=== PATIENT | male | born 1965 | race Caucasian/White ===

== ENCOUNTER 2017-12-05 12:40 | Emergency (ER) | payer MEDICAID, SELFPAY ==
[2017-12-05 12:47] VITALS: BP 142/64; PULSE 82; RESP 16; TEMP 36.7; O2SAT 96
--- NOTE | 2017-12-05 12:59 | ED.GENADUL_ITS ---
Disposition Clinical Impression: Acute radial nerve palsy of right upper extremity Disposition: HOME Condition: Serious Instructions: Radial Nerve Palsy (ED) Additional Instructions: Please use wrist splint for the next 1-2 weeks. Please follow-up with your primary care physician. I am concerned that you are taking too much lorazepam and other sedatives at night. Please take medications only as prescribed and be sure to discuss your current medication dosing with your primary care physician. Should symptoms persist, follow-up with orthopedics. Return to the emergency department immediately for any worsening or new concerning symptoms. Forms: Work Release Medical Decision Making - Medical Decision Making 13:00 --patient seen immediately on arrival. A medical screening exam was performed. Patient is a 52-year-old male with multiple medical problems resenting with inability to extend his right hand at wrist and right digits as well as some paresthesias over his dorsal lateral hand upon waking this morning. Patient notes he slept on his arm wrong last night. I am concerned that he is potentially overdosing on sedative medications at night. I suspect he has a radial nerve palsy. He has no other findings that would be concerning for a central lesion. Plan is to place the patient in a wrist splint and have him follow-up with his primary care physician. --screening ECG was sent by protocol. ECG reviewed and interpreted by me: Normal sinus rhythm 83 bpm, normal axis, T-wave inversion noted aVL, nondiagnostic History of Present Illness - General Chief complaint: CVA/TIA Stated complaint: [place] Time Seen by Provider: 12/05/17 12:50 Source: patient, RN notes reviewed Mode of arrival: ambulatory Limitations: no limitations - History of Present Illness Initial comments: 52-year-old male with history of coronary artery disease, diabetes, hyperlipidemia, chronic pain, presents with chief complaint of weakness in his right arm. Patient specifically notes he has weakness in his ability to lift up his right hand at wrist. This started upon waking today around 10 AM. He went to his primary care physician who saw him briefly and sent him to the ER for further evaluation. Symptoms are severe. Constant. No modifiers. Patient has associated tingling in his right hand. Patient has no associated headache, other weakness, or visual changes. Patient does note that he takes all of his prescribed lorazepam (3mg dose) at bedtime. He does think that he may have slept on his arm wrong last night. I called and spoke with Sosa at the [facility] who evaluated the patient and sent him for evaluation. She notes that she was specifically concerned for stroke because the patient noted that he was concerned for stroke and that a complete exam was not done initially prior to calling EMS. After EMS arrival the room to see that the patient was able to ambulate without dysfunction and were more concerned about the potential for palsy. - Related Data Atorvastatin [Lipitor] 80 mg PO DAILY 12/05/17 FLUoxetine [PROzac] 40 mg PO DAILY 12/05/17 Insulin Glargine,Hum.rec.anlog [Lantus] 31 units PO HS 12/05/17 Levothyroxine Sodium 100 mcg PO DAILY 12/05/17 Lisinopril 5 mg PO DAILY 12/05/17 Lorazepam 3 mg PO DAILY 12/05/17 MetFORMIN [Glucophage] 1,000 mg PO BID 12/05/17 Methocarbamol 750 mg PO HS 12/05/17 Metoprolol [Lopressor] 50 mg PO DAILY 12/05/17 Naproxen [EC-Naprosyn] 500 mg PO DAILY 12/05/17 OxyCODONE CR [OxyCONTIN] 40 mg PO BID 12/05/17 Oxycodone HCl 30 mg PO BID 12/05/17 Pregabalin [Lyrica] 200 mg PO BID 12/05/17 TraZODone [Desyrel] 100 mg PO DAILY 12/05/17 Allergies Allergy/AdvReac Type Severity Reaction Status Date / Time adhesive tape Allergy Unverified 12/05/17 12:50 morphine Allergy Unverified 12/05/17 12:50 Review of Systems Constitutional: denies: chills, fever Eyes: denies: vision change Respiratory: denies: cough, shortness of breath Cardiovascular: denies: chest pain Gastrointestinal: denies: abdominal pain Neurological: as per HPI, weakness, numbness. denies: headache Comment: All other systems reviewed and negative Past Medical History - Past Medical History Medical history: arthritis, CAD, diabetes, hyperlipidemia, hypertension Surgical history: appendectomy Psychiatric history: panic attacks - Social History Smoking status: never smoker General Exam - General Limitations: no limitations General appearance: alert, in no apparent distress - Eye Eye exam: Present: PERRL, EOMI. Absent: scleral icterus, conjunctival injection - ENT ENT exam: Present: mucous membranes moist - Respiratory Respiratory exam: Present: normal lung sounds bilaterally - Cardiovascular Cardiovascular Exam: Present: regular rate, normal rhythm, normal heart sounds - GI/Abdominal GI/Abdominal exam: Present: soft. Absent: distended, tenderness - Extremities Exam Extremities exam: Absent: pedal edema - Neurological Exam Neurological exam: Present: alert, oriented X3, CN II-XII intact, normal gait, motor sensory deficit (Unable to extend right wrist and digits, decreased sensation dorsal lateral hand; otherwise full strength in other peripheral motor distributions rt arm; no other neuro deficits). Absent: altered - Psychiatric Psychiatric exam: Present: normal affect - Skin Skin exam: Present: warm, dry, intact Course Vital Signs - 24 hr 12/05/17 12:47 Temperature 36.7 C Pulse 82 Respiratory 16 Rate Blood Pressure 142/64 Pulse Oximetry 96
[2017-12-05 13:06] VITALS: RESP 18
[2017-12-05 13:43] VITALS: BP 142/64; PULSE 82; RESP 18; O2SAT 96
== END 2017-12-05 13:42 | disposition home or self-care (01) ==
PROVIDERS: Emergency Provider Student in an Organized Health Care Education/Training Program; PCP Physician Assistant Medical
DX: G56.31 Lesion of radial nerve, right upper limb (principal); E11.9 Type 2 diabetes mellitus without complications; Z79.4 Long term (current) use of insulin; I10 Essential (primary) hypertension
CPT/HCPCS: 29125; 93005; 99284; 93010; L3908

== ENCOUNTER 2022-03-31 15:25 | Inpatient (IN) | payer MEDICARE, MEDICAID, SELFPAY ==
[2022-03-31] VITALS (12 sets, daily range): BP systolic 123–130; BP diastolic 61–78; PULSE 80–101; RESP 17–25; TEMP 36.6–36.9; O2SAT 88–96
--- NOTE | 2022-03-31 16:01 | ED.GENADUL_ITS ---
Discharge Plan Disposition Patient Disposition: Admit to [facility] Condition: Stable Discharge Details Clinical Impression: COVID-19, Multifocal pneumonia, Generalized weakness, Vomiting and diarrhea Admit Date/Time: 03/31/22 18:49 Admit Provider: Houston Liao Attending Provider: Houston Liao Primary Care Provider: Christine Arora ED Provider: Emma Stubbs Discharge Data Discharge Date/Time-TO BE ENTERED AT DEPARTURE: 03/31/22 20:35 Medical Decision Making 1540 -- 56-year-old male with history of hypertension, hyperlipidemia, diabetes, coronary artery disease, hypothyroidism, obesity who presents from home for vomiting, diarrhea and shortness of breath today with generalized weakness since yesterday. Heart rate mildly elevated at 101. Remainder vitals within normal limits. Patient appears generally fatigued but nontoxic. Dry mucous membranes. Lungs clear throughout. Abdomen soft and nontender. No lower extremity edema. Differential diagnosis includes COVID, influenza, RSV, pneumonia, PE, dehydration. We will place an IV, bolus IV fluids, screening labs, Fluvid, cxr and give a dose of IV Toradol, DuoNeb, and reassess. 1830 --labs and imaging reviewed. Patient is COVID-positive. Normal white blood cell count. Negative influenza and RSV. Chest x-ray was negative. His D-dimer was elevated to 1866 so he was referred for a CT chest which was negative for PE but did note bilateral infiltrates and groundglass opacities likely consistent with COVID. Patient reassessed and he still feels weak. Attempted to ambulate and he stated he was too weak and his heart rate increased to 130s. His oxygen saturation is 91 to 93% on room air. We will start supplemental oxygen as needed to keep oxygen saturation above 90%. We will give additional IV fluids and nebulizer treatment. Will admit for remdesivir, supplemental oxygen as needed, IV fluid hydration and PT evaluation. Case discussed with hospitalist who accepts patient for admission. Medical Records Medical records reviewed: Yes I reviewed the patient's medical records. Imaging Data Radiologic Study: Radiologist's impression: XR PORTABLE CHEST AP CLINICAL HISTORY:? sob, r/o acute disease TECHNIQUE:? 2D digital imaging was performed. COMPARISON:? No exams were available for comparison FINDINGS: Leads overlie the chest.? There is a monitoring device projecting over the left heart border. LUNGS: Not well inflated but clear.? No pleural abnormality seen. HEART: Normal size. AORTA: Normal diameter. BONES: Sternal wires and mediastinal clips likely related to CABG. Soft tissues: Unremarkable. IMPRESSION: No acute? findings. CTA Chest With Contrast Exam date and time: 03/31/2022 5:13 PM Age: 56 years old Clinical indication: Other: SOB, covid +, R/O pe TECHNIQUE: Imaging protocol: Computed tomographic angiography of the chest with contrast. 3D rendering (Not supervised by radiologist): MIP and/or 3D reconstructed images were created by the technologist. Contrast material: 350; Contrast volume: 100 ml; Contrast route: INTRAVENOUS (IV);? COMPARISON: CR XR PORTABLE CHEST AP 03/31/2022 4:23 PM FINDINGS: Pulmonary arteries: Normal. No pulmonary emboli. Aorta: Unremarkable. No aortic aneurysm. No aortic dissection. Lungs: Hazy airspace opacity in both lower lobes, left worse than right. Suspect consolidation. More ground-glass changes are noted in the upper lobes. New lines left chest wall subcutaneous cardiac device noted. Right lower lobe calcified granuloma. Pleural spaces: Unremarkable. No pneumothorax. No pleural effusion. Heart: Small pericardial effusion. Coronary arteries: Coronary artery calcifications/stents identified. Lymph nodes: Mild right hilar and minimal left hilar adenopathy. Mild mediastinal adenopathy. Liver: Mild fatty liver. Bones/joints: Status post median sternotomy. Posttraumatic changes noted in the upper chest anterior ribs, likely postoperative in nature. Soft tissues: See Bones/joints finding. Other findings: Respiratory motion noted. IMPRESSION: 1. No evidence for pulmonary embolus. 2. Scattered infiltrates, most dense in the left lower lobe. More ground-glass appearance noted in the upper lobes. Lab Data Lab results reviewed: Yes I reviewed the patient's lab results. Labs: Laboratory Tests Range/Units 03/31/22 03/31/22 03/31/22 15:35 16:02 16:02 WBC (4.4-10.8) 10^3/uL 6.35 RBC (4.36-5.78) 10^6/uL 4.21 L Hgb (13.5-17.5) g/dL 13.0 L Hct (40.0-50.0) % 38.6 L MCV (80-95) fL 92 MCH (27.0-33.0) pg 30.9 MCHC (32.0-36.0) % 33.7 RDW (11.8-14.1) % 14.1 Plt Count (130-400) 10^3/uL 199 MPV (8.0-11.0) fL 8.9 Immature Gran % 1.1 Neutrophils % 83.7 Lymphocytes % 7.9 Monocytes % 6.8 Eosinophils % 0.0 Basophils % 0.5 Nucleated RBC % (0.0-0.3) % 0.0 Absolute Neutrophils (1.2-6.7) 10^3/uL 5.32 Absolute Lymphocytes (1.2-3.4) 10^3/uL 0.50 L Absolute Monocytes (0.1-0.8) 10^3/uL 0.43 Absolute Eosinophils (0.0-0.7) 10^3/uL 0.00 Absolute Basophils (0.0-0.2) 10^3/uL 0.03 D-Dimer (<500) ng/mlFEU Sodium (136-145) mmol/L 136 Potassium (3.5-5.1) mmol/L 4.1 Chloride (98-107) mmol/L 98 Carbon Dioxide (21.0-32.0) mmol/L 24.2 Anion Gap (3-11) mmol/L 13.8 H BUN (7-18) mg/dL 10 Creatinine (0.70-1.30) mg/dL 0.9 Est GFR (CKD-EPI 2020) (mL/min/1.73m2) 101.49 Glucose (74-106) mg/dL 199 H Calcium (8.5-10.1) mg/dL 8.9 Total Bilirubin (0.2-1.0) mg/dL 1.0 AST (15-37) U/L 142 H ALT (16-63) U/L 100 H Alkaline Phosphatase (46-116) U/L 87 Total Protein (6.4-8.2) g/dL 7.8 Albumin (3.4-5.0) g/dL 3.5 Lipase (73-393) U/L 113 TSH (0.36-3.74) uIU/mL 0.36 COVID-19 Source Not Applicable SARS-CoV-2 (PCR) (Negative) Positive A Influenza Type A (PCR) (Negative) Negative Influenza Type B (PCR) (Negative) Negative RSV (PCR) (Negative) Negative Range/Units 03/31/22 03/31/22 03/31/22 16:02 16:02 16:02 WBC (4.4-10.8) 10^3/uL RBC (4.36-5.78) 10^6/uL Hgb (13.5-17.5) g/dL Hct (40.0-50.0) % MCV (80-95) fL MCH (27.0-33.0) pg MCHC (32.0-36.0) % RDW (11.8-14.1) % Plt Count (130-400) 10^3/uL MPV (8.0-11.0) fL Immature Gran % Neutrophils % Lymphocytes % Monocytes % Eosinophils % Basophils % Nucleated RBC % (0.0-0.3) % Absolute Neutrophils (1.2-6.7) 10^3/uL Absolute Lymphocytes (1.2-3.4) 10^3/uL Absolute Monocytes (0.1-0.8) 10^3/uL Absolute Eosinophils (0.0-0.7) 10^3/uL Absolute Basophils (0.0-0.2) 10^3/uL D-Dimer (<500) ng/mlFEU 1866 H Sodium (136-145) mmol/L Potassium (3.5-5.1) mmol/L Chloride (98-107) mmol/L Carbon Dioxide (21.0-32.0) mmol/L Anion Gap (3-11) mmol/L BUN (7-18) mg/dL Creatinine (0.70-1.30) mg/dL Est GFR (CKD-EPI 2020) (mL/min/1.73m2) Glucose (74-106) mg/dL Calcium (8.5-10.1) mg/dL Total Bilirubin (0.2-1.0) mg/dL AST (15-37) U/L ALT (16-63) U/L Alkaline Phosphatase (46-116) U/L Total Protein (6.4-8.2) g/dL Albumin (3.4-5.0) g/dL Lipase (73-393) U/L Cancelled TSH (0.36-3.74) uIU/mL Cancelled COVID-19 Source SARS-CoV-2 (PCR) (Negative) Influenza Type A (PCR) (Negative) Influenza Type B (PCR) (Negative) RSV (PCR) (Negative) HPI General Mode of arrival: EMS . Date/Time Provider Initiated Documentation: 03/31/22 15:50 . Limitations to Documentation: no limitations . Information obtained by: patient . HPI Narrative: Patient is a 56-year-old male with a history of hypertension, hyperlipidemia, coronary artery disease, CABG x2, diabetes, hypothyroidism who presents from home for vomiting, diarrhea, shortness of breath and generalized weakness today. Patient states he developed some weakness yesterday but then started with vomiting and diarrhea and shortness of breath today. He states his diarrhea has mainly been loose and brown. He denies any known fever, chest pain or abdominal pain. Patient is unvaccinated for COVID. Related Data Home Medications Medication Instructions Recorded Confirmed atorvastatin 80 mg tablet (Lipitor) 80 mg PO DAILY 12/05/17 03/31/22 insulin glargine 100 unit/mL 31 units PO HS 12/05/17 03/31/22 subcutaneous solution (Lantus U-100 Insulin) levothyroxine 100 mcg tablet 100 mcg PO DAILY 12/05/17 03/31/22 lorazepam 1 mg tablet 3 mg PO DAILY 12/05/17 03/31/22 metformin 1,000 mg tablet 1,000 mg PO BID 12/05/17 03/31/22 (Glucophage) methocarbamol 750 mg tablet 750 mg PO HS 12/05/17 03/31/22 naproxen 500 mg tablet,delayed 500 mg PO DAILY 12/05/17 12/05/17 release (EC-Naprosyn) oxycodone 30 mg tablet 30 mg PO BID 12/05/17 03/31/22 pregabalin 200 mg capsule (Lyrica) 200 mg PO BID 12/05/17 03/31/22 trazodone 100 mg tablet 100 mg PO DAILY 12/05/17 03/31/22 semaglutide 0.25 mg or 0.5 mg (2 0.25 mg subcut QWEEK 08/07/19 mg/1.5 mL) subcutaneous pen injector (Ozempic) fluoxetine 40 mg capsule 20 mg PO DAILY 08/22/19 09/24/19 metoprolol tartrate 25 mg tablet 50 mg PO BID 08/22/19 03/31/22 Allergies Allergy/AdvReac Type Severity Reaction Status Date / Time adhesive tape Allergy Unverified 03/31/22 15:37 morphine Allergy Unverified 03/31/22 15:37 venlafaxine AdvReac Mild nightmares/ Verified 03/31/22 15:37 hallucinati ons General Stated Complaint: Nausea/Vomit/Diar LATISHA: 3 Review of Systems All systems reviewed & are unremarkable except as noted in HPI and below Constitutional Constitutional: Reports as per HPI, Denies chills and Denies fever(s) Eyes Eyes: Denies blurry vision ENT Ears, Nose, Mouth, and Throat: Denies dizziness, Denies sore throat and Denies throat swelling Cardiovascular Cardiovascular: Denies chest pain and Reports dyspnea Respiratory Respiratory: Denies cough and Reports dyspnea Gastrointestinal Gastrointestinal: Denies abdominal pain, Reports diarrhea, Reports nausea and Reports vomiting Genitourinary Genitourinary: Denies hematuria and Denies dysuria Musculoskeletal Musculoskeletal: Denies back pain and Denies numbness Integumentary/Breasts Skin/Breast: Denies lesions and Denies rash Neurologic Neurologic: Denies dizziness, Denies localized weakness and Denies numbness Allergic/Immunologic Allergic/Immunologic: Denies throat swelling PFSH All Active Problems (Updated 04/02/22 @ 17:25 by Angela Kim MD) Discharge planning issues (Acute) Diabetes mellitus type 2 in obese (Acute) Pneumonia due to COVID-19 virus (Acute) COVID-19 (Acute) Multifocal pneumonia (Acute) Generalized weakness (Acute) Right carpal tunnel syndrome (Acute) Cubital tunnel syndrome on right (Acute) Stroke (Chronic) Ulnar neuropathy of right upper extremity (Acute) Diabetic neuropathy (Acute) Medical History Acute ST segment elevation myocardial infarction Coronary arteriosclerosis Cubital tunnel syndrome on left Diabetes Dyspnea Full thickness rotator cuff tear Headache Hx of herpes zoster Hyperlipidemia Hypertension Hypothyroidism Idiopathic osteoporosis Inflammatory dermatosis Injury of right lower leg Insomnia Knee pain halfway (current) use of opiate analgesic Obesity Pain, joint, shoulder, left Panic disorder Second degree atrioventricular block Severe recurrent major depression with psychotic features Suicidal thoughts Vitamin D deficiency Surgical History H/O arthroplasty History of appendectomy History of carpal tunnel surgery L 2008 History of loop recorder Apr 2019 Hx of cardiac cath S/P CABG x 2 S/P rotator cuff repair L 2008 Family History Mother Torticollis Father Diabetes Multiple sclerosis Cardiomyopathy Social History Smoking/Tobacco Use Status: Never Smoking risk assessment performed?: Yes Alcohol Intake: former Details: QUIT 2003 Drug use: Never Substance use type: does not use Housing: house current occupation: Disabled What is your relationship status?: never Panel score (0-1 are the most socially isolated patients): 0 Seatbelt use: always Do you feel safe in your relationship?: Yes Exam Const General: cooperative, no acute distress and disheveled Orientation: alert, awake and oriented x3 HENMT Head: normal to inspection Ears: hearing grossly normal bilaterally and external ears normal Face and sinus: normal facial exam Eyes General: appearance normal, both eyes and all related structures Pupils: PERRL EOM: EOM intact bilaterally Neck Neck: normal visual inspection and No submandibular swelling Lymphatic: no lymphadenopathy noted Chest Chest: normal inspection of the chest and no tenderness Resp Effort & Inspection: normal respiratory effort and able to speak in complete sentences Auscultation: clear to auscultation bilaterally Cardio Rate: tachycardic Rhythm: regular rhythm GI Inspection: normal to inspection Palpation: soft, not firm, not rigid and nontender Auscultation: normal bowel sounds Skin General skin exam: no rashes or lesions noted Neuro General: patient alert, patient awake and patient oriented x3 Cognition: normal cognition Speech: speech normal Motor: muscle tone normal throughout Sensory Exam: no sensory deficits noted Extrem General: normal to inspection, full ROM, capillary refill normal, no calf tenderness bilaterally and no edema Psych Appearance: grossly normal Mental Status: mental status grossly normal Speech and Movement: speech and movement normal Affect: normal affect Course Vital Signs Vital signs: Vital Signs Temperature 97.9 F 03/31/22 15:24 Pulse 101 H 03/31/22 15:24 Respiratory Rate 17 03/31/22 15:24 Blood Pressure 123/61 03/31/22 15:24 Pulse Oximetry 94 03/31/22 15:24 Temperature 97.9 F 03/31/22 15:24 Temperature Source Temporal Artery Scan 03/31/22 15:24 Pulse 101 H 03/31/22 15:24 Respiratory Rate 17 03/31/22 15:24 Respiratory Effort Short of Breath 03/31/22 15:35 Blood Pressure 123/61 03/31/22 15:24 Blood Pressure Position Sitting 03/31/22 15:24 Pulse Oximetry 94 03/31/22 15:24 Oxygen Delivery Method Room Air 03/31/22 15:24 Oxygen Flow Rate 0 03/31/22 15:24 Pain Level 10 03/31/22 15:24
[2022-03-31 16:08] LABS: Abs Immature Grans 0.07 10^3/uL (0.0-0.06); Absolute Basophil Count 0.03 10^3/uL (0.0-0.2); Absolute Monocyte Count 0.43 10^3/uL (0.1-0.8); Absolute Neutrophil Count 5.32 10^3/uL (1.2-6.7); Basophils % 0.5; HCT 38.6 % (40.0-50.0); Immature Grans % 1.1; Lymphocytes % 7.9; MCH 30.9 pg (27.0-33.0); MCHC 33.7 % (32.0-36.0); MCV 92 fL (80-95); MPV 8.9 fL (8.0-11.0); Monocytes % 6.8; Neutrophils % 83.7; Platelet Count 199 10^3/uL (130-400); RBC 4.21 10^6/uL (4.36-5.78); RDW 14.1 % (11.8-14.1); RDW-SD 47.6 fL; WBC 6.35 10^3/uL (4.4-10.8)
[2022-03-31] MEDS: Normal Saline 1,000 ML 1000 ML IV (16:15)
[2022-03-31] MEDS: Ketorolac 30 MG/ML VIAL IVP (16:15)
[2022-03-31] MEDS: Ondansetron 4 MG/2 ML VIAL IVP (16:15)
[2022-03-31 16:21] LABS: Influenza A PCR Negative (Negative); Influenza B PCR Negative (Negative); RSV PCR Negative (Negative)
[2022-03-31 16:29] LABS: COVID-19 PCR Positive (Negative)
--- NOTE | 2022-03-31 16:30 | DI.CT_ITS ---
Exam(s) CT CHEST PE CTA EXAM: CT CHEST PE CTA CLINICAL HISTORY: sob, covid +, r/o PE. TECHNIQUE: Imaging Protocol: Axial CT angiography was performed with multi-slice acquisition and mu lti-planar and/or 3D reconstructions. CONTRAST MATERIAL: Intravenous: Omnipaque 350 contrast volume:100 mL COMPARISON: CT RENAL COLIC WO CONTRAST from 02/21/2009 FINDINGS: Tracheobronchial tree: Patent where visualized. Pulmonary parenchyma: There are multifocal bilateral ground-glass opacities present. There is a calc ified granuloma in the right lower lobe. No architectural distortion. Pulmonary Arteries: No evidence of filling defect to suggest pulmonary emboli. Mediastinum and Krista: Mildly enlarged lymph nodes are seen in the mediastinum which are likely reacti ve. The esophagus is unremarkable. Visualized thyroid gland: Unremarkable. Pleura: No effusion or pneumothorax. Heart: The heart is not dilated. Coronary artery calcification and/or stents are seen. No significan t pericardial effusion. Aorta: Thoracic aorta non-dilated. No evidence of dissection. Upper abdomen: Unremarkable. Soft tissues: Unremarkable. Bones: Within normal limits for the patient's age. IMPRESSION: 1. No evidence of pulmonary embolism, thoracic aortic dissection or aneurysm. 2. Scattered ground-glass opacities in the lungs consistent with pneumonia. RADIATION DOSE DELIVERED: 594.99mGy.cm Total DLP DATA REPOSITORY: All CT scans at this facility are submitted to the National Radiology Data Registry (NRDR) Dose Index Registry (DIR) with the [employer] (A[employer]). RADIATION OPTIMIZATION: All CT scans at this facility use at least one of these dose optimization te chniques: automated exposure control; mA and/or kV adjustment per patient size (includes targeted exa ms where dose is matched to clinical indication); or iterative reconstruction.
--- NOTE | 2022-03-31 16:30 | DI.RAD_ITS ---
Exam(s) XR PORTABLE CHEST AP EXAM: XR PORTABLE CHEST AP CLINICAL HISTORY: sob, r/o acute disease TECHNIQUE: 2D digital imaging was performed. COMPARISON: No exams were available for comparison FINDINGS: Leads overlie the chest. There is a monitoring device projecting over the left heart border. LUNGS: Not well inflated but clear. No pleural abnormality seen. HEART: Normal size. AORTA: Normal diameter. BONES: Sternal wires and mediastinal clips likely related to CABG. Soft tissues: Unremarkable. IMPRESSION: No acute findings. DATA REPOSITORY: RADIATION DOSE DELIVERED:
[2022-03-31 16:34] LABS: ALT 100 U/L (16-63); AST 142 U/L (15-37); Albumin 3.5 g/dL (3.4-5.0); Alkaline Phosphatase 87 U/L (46-116); Anion Gap 13.8 mmol/L (3-11); BUN 10 mg/dL (7-18); CO2 24.2 mmol/L (21.0-32.0); CREATININE 0.9 mg/dL (0.70-1.30); Calcium 8.9 mg/dL (8.5-10.1); Chloride 98 mmol/L (98-107); Estimated GFR 101.49 (mL/min/1.73m2); Glucose 199 mg/dL (74-106); Lipase 113 U/L (73-393); Potassium 4.1 mmol/L (3.5-5.1); Sodium 136 mmol/L (136-145); TSH (W/Ref FT4) 0.36 uIU/mL (0.36-3.74); Total Protein 7.8 g/dL (6.4-8.2)
[2022-03-31 16:39] LABS: D-Dimer 1866 ng/mlFEU (<500)
[2022-03-31] MEDS: Omnipaque 350 MG/ML 100 ML BTL IJ (17:23)
[2022-03-31] MEDS: Normal Saline - Diluent 50 ML VIAL IV (17:25)
--- NOTE | 2022-03-31 18:08 | DI.VRAD_ITS ---
PROCEDURE INFORMATION: Exam: CTA Chest With Contrast Exam date and time: 03/31/2022 5:13 PM Age: 56 years old Clinical indication: Other: SOB, covid +, R/O pe TECHNIQUE: Imaging protocol: Computed tomographic angiography of the chest with contrast. 3D rendering (Not supervised by radiologist): MIP and/or 3D reconstructed images were created by the technologist. Contrast material: 350; Contrast volume: 100 ml; Contrast route: INTRAVENOUS (IV); COMPARISON: CR XR PORTABLE CHEST AP 03/31/2022 4:23 PM FINDINGS: Pulmonary arteries: Normal. No pulmonary emboli. Aorta: Unremarkable. No aortic aneurysm. No aortic dissection. Lungs: Hazy airspace opacity in both lower lobes, left worse than right. Suspect consolidation. More ground-glass changes are noted in the upper lobes. New lines left chest wall subcutaneous cardiac device noted. Right lower lobe calcified granuloma. Pleural spaces: Unremarkable. No pneumothorax. No pleural effusion. Heart: Small pericardial effusion. Coronary arteries: Coronary artery calcifications/stents identified. Lymph nodes: Mild right hilar and minimal left hilar adenopathy. Mild mediastinal adenopathy. Liver: Mild fatty liver. Bones/joints: Status post median sternotomy. Posttraumatic changes noted in the upper chest anterior ribs, likely postoperative in nature. Soft tissues: See Bones/joints finding. Other findings: Respiratory motion noted. IMPRESSION: 1. No evidence for pulmonary embolus. 2. Scattered infiltrates, most dense in the left lower lobe. More ground-glass appearance noted in the upper lobes. Dictated and Authenticated by: An Yee MD. Ordering:LUCÍA Carter MD
--- NOTE | 2022-03-31 18:32 | NUR.NOTE ---
Nursing Note: Per patient we can give Sondra his neighbor information regarding this visit.
[2022-03-31] MEDS: Albuterol 2.5 MG/3 ML INH SOLN VIAL 5 MG UPD (19:06)
--- NOTE | 2022-03-31 19:16 | W.PM.HP.N ---
Date of service: 03/31/22 Time of Service: 19:16 Assessment and Plan Assessment and plan (1) Pneumonia due to COVID-19 virus: Status: Acute Assessment and plan: Not currently hypoxic but at risk for worsening d/t comorbidities. Remdesivir and dexamethasone initiated. Therapeutic lovenox dosing. Vit C and D supplementation. Monitor inflammatory markers d-dimer and CRP. (2) Generalized weakness: Status: Acute Assessment and plan: D/T Covid-19. PT consulted. (3) Vomiting and diarrhea: Status: Acute Assessment and plan: Likely d/t Covid-19. Lomotil prn. Adequate hydration. (4) Acute ST segment elevation myocardial infarction: Assessment and plan: Not on an aspirin. Cont BB and statin. No c/o CP. (5) Coronary arteriosclerosis: Assessment and plan: As above. (6) Hyperlipidemia: Assessment and plan: Cont atorvastatin (7) Hypertension: Assessment and plan: Cont metoprolol. Monitor. (8) Obesity: Assessment and plan: Places him at higher risk for Covid complications. (9) skilled nursing (current) use of opiate analgesic: Assessment and plan: Prescribed for chronic back pain. He endorses that he was scheduled for back surgery this summer but did not proceed. Cont Methcarbamol and oxycodone. (10) Diabetes mellitus type 2 in obese: Status: Acute Assessment and plan: Cont home glargine. Hold metformin; received IV contrast with CTA chest. SS insulin correction dosing. On semiglutide SC weekly. Monitor glucose. Diabetic diet. (11) Severe recurrent major depression with psychotic features: Assessment and plan: Fluoxetine and nightly lorazepam (also for insomnia). At risk for exacerbation d/t Covid 19, isolation in Covid room. History of Present Illness History of Present Illness Chief Complaint: Shortness of air, vomiting, diarrhea Narrative: This is a 56 yo male with a PMH of DM insulin req., CAD with CABG x 2, HTN, HLD, hypothyroidism, obesity. He endorsed with c/o shortness or air, generalized weakness, emesis, diarrhea, onset on day of presentation. No melena/hematochezia. No fever/chills. No abd pain. He is unvaccinated for COVID-19. ED evaluation: Vital Signs Temperature ?97.9 F ?03/31/22 15:24 Pulse ?101 H ?03/31/22 15:24 Respiratory Rate ?17 ?03/31/22 15:24 Blood Pressure ?123/61 ?03/31/22 15:24 Pulse Oximetry ?94 ?03/31/22 15:24 WBC count 6.35. Hgb 13. Lytes normal. BUN 10. Creatinine 0.9. AST 142. ALT 100. SARSA-CoV 2 +. CXR: No acute findings. CTA chest: No pulmonary embolism. Scattered infiltrates, most dense in left lower lobe. More ground-glass appearance noted in the upper lobes. Admitted for Covid-19 treatment. Review of Systems All systems reviewed & are unremarkable except as noted in HPI and below PFSH All Active Problems (Updated 03/31/22 @ 21:00 by Houston Liao MD) Diabetes mellitus type 2 in obese (Acute) Pneumonia due to COVID-19 virus (Acute) COVID-19 (Acute) Multifocal pneumonia (Acute) Generalized weakness (Acute) Vomiting and diarrhea (Acute) Right carpal tunnel syndrome (Acute) Cubital tunnel syndrome on right (Acute) Stroke (Chronic) Ulnar neuropathy of right upper extremity (Acute) Diabetic neuropathy (Acute) Medical History Acute ST segment elevation myocardial infarction Coronary arteriosclerosis Cubital tunnel syndrome on left Diabetes Dyspnea Full thickness rotator cuff tear Headache Hx of herpes zoster Hyperlipidemia Hypertension Hypothyroidism Idiopathic osteoporosis Inflammatory dermatosis Injury of right lower leg Insomnia 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 Obesity Pain, joint, shoulder, left Panic disorder Second degree atrioventricular block Severe recurrent major depression with psychotic features Suicidal thoughts Vitamin D deficiency Surgical History H/O arthroplasty History of appendectomy History of carpal tunnel surgery L 2008 History of loop recorder Apr 2019 Hx of cardiac cath S/P CABG x 2 S/P rotator cuff repair L 2008 Family History Mother Torticollis Father Diabetes Multiple sclerosis Cardiomyopathy Social History Smoking/Tobacco Use Status: Never Smoking risk assessment performed?: Yes Alcohol Intake: former Details: QUIT 2003 Drug use: Never Substance use type: does not use Housing: house current occupation: Disabled What is your relationship status?: never Panel score (0-1 are the most socially isolated patients): 0 Seatbelt use: always Do you feel safe in your relationship?: Yes Meds Allergies and Home Medications Allergies Allergy/AdvReac Type Severity Reaction Status Date / Time adhesive tape Allergy Unverified 03/31/22 15:37 morphine Allergy Unverified 03/31/22 15:37 venlafaxine AdvReac Mild nightmares/ Verified 03/31/22 15:37 hallucinati ons Home Medications Medication Instructions Recorded Confirmed Type atorvastatin 80 mg tablet (Lipitor) 80 mg PO DAILY 12/05/17 03/31/22 History insulin glargine 100 unit/mL 31 units PO HS 12/05/17 03/31/22 History subcutaneous solution (Lantus U-100 Insulin) levothyroxine 100 mcg tablet 100 mcg PO DAILY 12/05/17 03/31/22 History lorazepam 1 mg tablet 3 mg PO DAILY 12/05/17 03/31/22 History metformin 1,000 mg tablet 1,000 mg PO BID 12/05/17 03/31/22 History (Glucophage) methocarbamol 750 mg tablet 750 mg PO HS 12/05/17 03/31/22 History naproxen 500 mg tablet,delayed 500 mg PO DAILY 12/05/17 12/05/17 History release (EC-Naprosyn) oxycodone 30 mg tablet 30 mg PO BID 12/05/17 03/31/22 History pregabalin 200 mg capsule (Lyrica) 200 mg PO BID 12/05/17 03/31/22 History trazodone 100 mg tablet 100 mg PO DAILY 12/05/17 03/31/22 History semaglutide 0.25 mg or 0.5 mg (2 0.25 mg subcut QWEEK 08/07/19 History mg/1.5 mL) subcutaneous pen injector (Ozempic) fluoxetine 40 mg capsule 20 mg PO DAILY 08/22/19 09/24/19 History metoprolol tartrate 25 mg tablet 50 mg PO BID 08/22/19 03/31/22 History Results Labs Result diagrams: 03/31/22 16:02 03/31/22 16:02 Labs: Laboratory Results - last 24 hr 03/31/22 03/31/2203/31/22 15:35 16:02 16:02 WBC 6.35 RBC 4.21 L Hgb 13.0 L Hct 38.6 L MCV 92 MCH 30.9 MCHC 33.7 RDW 14.1 Plt Count 199 MPV 8.9 Immature Gran % 1.1 Neutrophils % 83.7 Lymphocytes % 7.9 Monocytes % 6.8 Eosinophils % 0.0 Basophils % 0.5 Nucleated RBC % 0.0 Absolute Neutrophils 5.32 Absolute Lymphocytes 0.50 L Absolute Monocytes 0.43 Absolute Eosinophils 0.00 Absolute Basophils 0.03 D-Dimer Sodium 136 Potassium 4.1 Chloride 98 Carbon Dioxide 24.2 Anion Gap 13.8 H BUN 10 Creatinine 0.9 Est GFR (CKD-EPI 2020) 101.49 Glucose 199 H Calcium 8.9 Total Bilirubin 1.0 AST 142 H ALT 100 H Alkaline Phosphatase 87 Total Protein 7.8 Albumin 3.5 Lipase 113 TSH 0.36 COVID-19 Source Not Applicable SARS-CoV-2 (PCR) Positive A Influenza Type A (PCR) Negative Influenza Type B (PCR) Negative RSV (PCR) Negative 03/31/22 03/31/22 03/31/22 16:02 16:02 16:02 WBC RBC Hgb Hct MCV MCH MCHC RDW Plt Count MPV Immature Gran % Neutrophils % Lymphocytes % Monocytes % Eosinophils % Basophils % Nucleated RBC % Absolute Neutrophils Absolute Lymphocytes Absolute Monocytes Absolute Eosinophils Absolute Basophils D-Dimer 1866 H Sodium Potassium Chloride Carbon Dioxide Anion Gap BUN Creatinine Est GFR (CKD-EPI 2020) Glucose Calcium Total Bilirubin AST ALT Alkaline Phosphatase Total Protein Albumin Lipase Cancelled TSH Cancelled COVID-19 Source SARS-CoV-2 (PCR) Influenza Type A (PCR) Influenza Type B (PCR) RSV (PCR) Last Vital Signs Temp 36.6 C 03/31/22 15:24 Pulse 101 H 03/31/22 15:24 Resp 23 03/31/22 18:00 BP 127/65 03/31/22 17:56 Pulse Ox 94 03/31/22 18:00
[2022-03-31] MEDS: Albuterol/Ipratropium 3 ML UPD VIAL UPD (19:58)
[2022-03-31] MEDS: REMDESIVIR 200 MG in Normal Saline 250 ML 250 MG IVPB (20:46)
[2022-03-31] MEDS: oxyCODONE-CR 10 MG TABCR 30 MG PO (21:55)
[2022-03-31 21:57] LABS: Lab Add On Test DONE
[2022-03-31] MEDS: Atorvastatin 40 MG TAB 80 MG PO (21:57)
[2022-03-31] MEDS: LORazepam 1 MG TAB PO (21:58)
[2022-03-31] MEDS: Enoxaparin 100 MG/ML SYR SC (22:05)
[2022-03-31] MEDS: Dexamethasone 4 MG/ML VIAL 6 MG IVP (22:06)
[2022-03-31 22:07] LABS: C-Reactive Protein 5.54 mg/dL (0.0-0.3)
[2022-03-31] MEDS: Metoprolol 50 MG TAB PO (22:08)
[2022-04-01] VITALS (9 sets, daily range): BP systolic 118–150; BP diastolic 68–88; PULSE 44–80; RESP 16–20; TEMP 35.7–37.4; O2SAT 89–97
[2022-04-01] MEDS: traZODone 100 MG TAB PO ×2 (01:12→20:30)
[2022-04-01] MEDS: Levothyroxine 100 MCG TAB PO (05:46)
[2022-04-01 07:40] LABS: Magnesium 1.8 mg/dL (1.8-2.4)
[2022-04-01 07:44] LABS: ALT 93 U/L (16-63); AST 112 U/L (15-37); Albumin 3.1 g/dL (3.4-5.0); Alkaline Phosphatase 71 U/L (46-116); Anion Gap 9.7 mmol/L (3-11); BUN 10 mg/dL (7-18); Bilirubin, Total 0.7 mg/dL (0.2-1.0); C-Reactive Protein 4.43 mg/dL (0.0-0.3); CO2 25.3 mmol/L (21.0-32.0); CREATININE 0.7 mg/dL (0.70-1.30); Calcium 8.5 mg/dL (8.5-10.1); Chloride 104 mmol/L (98-107); Glucose 250 mg/dL (74-106); Potassium 4.3 mmol/L (3.5-5.1); Sodium 139 mmol/L (136-145); Total Protein 6.9 g/dL (6.4-8.2)
[2022-04-01 07:58] LABS: D-Dimer 1296 ng/mlFEU (<500)
[2022-04-01] MEDS: Ascorbic Acid 500 MG TAB PO (08:13)
[2022-04-01] MEDS: Cholecalciferol (Vitamin D3) 1,000 UNIT TAB 1000 UNITS PO (08:13)
[2022-04-01] MEDS: Pregabalin 100 MG CAP 200 MG PO ×2 (08:27→20:30)
[2022-04-01 08:42] LABS: Lab Add On Test COMPLETED
[2022-04-01] MEDS: oxyCODONE-CR 10 MG TABCR 30 MG PO ×2 (08:59→20:29)
--- NOTE | 2022-04-01 08:59 | INITIAL_ITS ---
- If Service Date Differs Date of service: 04/01/22 Time of Service: 08:59 Care Management Initial Assess REASON FOR HOSPITALIZATION:: Pneumonia due to COVID-19 virus PAST MEDICAL HISTORY/PAST SURGICAL HISTORY:: PFSH. All Active Problems (Updated 03/31/22 @ 21:00 by Houston Liao MD). Diabetes mellitus type 2 in obese (Acute). Pneumonia due to COVID-19 virus (Acute). COVID-19 (Acute). Multifocal pneumonia (Acute). Generalized weakness (Acute). Vomiting and diarrhea (Acute). Right carpal tunnel syndrome (Acute). Cubital tunnel syndrome on right (Acute). Stroke (Chronic). Ulnar neuropathy of right upper extremity (Acute). Diabetic neuropathy (Acute). Medical History . Acute ST segment elevation myocardial infarction. Coronary arteriosclerosis. Cubital tunnel syndrome on left. Diabe brittney. Dyspnea. Full thickness rotator cuff tear. Headache. Hx of herpes zoster. Hyperlipidemia. Hypertension. Hypothyroidism. Idiopathic osteoporosis. Inflammatory dermatosis. Injury of right lower leg. Insomnia. Knee pain. longterm (current) use of opiate analgesic. Obesity. Pain, joint, shoulder, left. Panic disorder. Second degree atrioventricular block. Severe recurrent major depression with psychotic features. Suicidal thoughts. Vitamin D deficiency. Surgical History . H/O arthroplasty. History of appendectomy. History of carpal tunnel surgery. L 2008. History of loop recorder. Apr 2019. Hx of cardiac cath. S/P CABG x 2. S/P rotator cuff repair. L 2008 PREVIOUS FUNCTIONAL STATUS/SOCIAL/FAMILY SUPPORTS:: Andrew lives alone in [place]. He is independent at baseline and drives. He identifies his neighbor Sondra as being his primary support. CURRENT FUNCTIONAL STATUS:: CM spoke with Andrew via phone due to covid precautions. He easily engages in conversation and shares that he could use some assistance applying for the [employer] program. He is agreeable to a referral to [facility], referral is placed. ADVANCE DIRECTIVES:: None on file at [facility] Has patient been provided with info about the portal/API?: Yes Did the patient sign up for the portal?: No CODE STATUS:: Full Code INSURANCE COVERAGE / FINANCIAL ISSUES:: Medicaid CURRENT HOME/COMMUNITY SERVICES/EQUIPMENT:: [facility] PRIMARY CARE PHYSICIAN:: Christine Arora POTENTIAL DISCHARGE NEEDS:: Discharge plan, transportation, Evalutation for increased community support. PATIENT/FAMILY EDUCATION NEEDS:: Review discharge instructions, limitations, medications and plan to follow up with community providers. Discuss ask me three and goals of self care. TRANSPORTATION:: Anticipate, Andrew will transport home via EMS, due to covid dx. PLAN:: Anticipate Andrew will discharge home via private vehicle with friend vs. EMS due to covid dx, when medically ready. He will follow up with community providers and discharge plan of care as precribed.
[2022-04-01 09:12] LABS: Procalcitonin < 0.1 ng/mL
--- NOTE | 2022-04-01 11:46 | PDOC.CMDIS ---
- If Service Date Differs Date of service: 04/01/22 Time of Service: 11:46 LACE Index Scoring Tool - Questions: Length of Stay (in days): 1 Acuity (Admit via E.D.?): Yes Comorbidities: Diabetes w/o Complication E.D. Visits: 1 - Answers: Total Score: 6 Risk of Readmission: Low Risk Care Management Discharge Reason for Hospitalization: Pneumonia due to COVID-19 virus Discharge Plan: Andrew is discharged home via EMS with no new services. Andrew will follow up with his community providers and discharge plan of care as precribed. Patient/Family Education Needs: Review discharge instructions, limitations, medications and plan to follow up with community providers. Discuss ask me three and goals of self care. Services Needed at Discharge: Transportation (EMS, coordinated by CM/Nirmalaid +)
--- NOTE | 2022-04-01 12:03 | IN_ITS ---
PT Notes Visit Reasons: Covid-19 pneumonia Inpatient Physical Therapy Evaluation Date: 04/01/22 Referring Doctor: Dr. Kim PT Orders: PT CONSULT: safety consult Precautions: COVID Patient Profile/Admitting Diagnosis: Patient admitted for medical management of COVID-19 pneumonia. PT consult requested to assess mobility. PMHX: All Active Problems?(Updated 03/31/22 @ 21:00 by Houston Liao MD) Diabetes mellitus type 2 in obese (Acute) Pneumonia due to COVID-19 virus (Acute) COVID-19 (Acute) Multifocal pneumonia (Acute) Generalized weakness (Acute) Vomiting and diarrhea (Acute) Right carpal tunnel syndrome (Acute) Cubital tunnel syndrome on right (Acute) Stroke (Chronic) Ulnar neuropathy of right upper extremity (Acute) Diabetic neuropathy (Acute) Medical History? 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 Assistance from neighbors. Ambulates with cane at baseline. Reports inability to sit >30 minutes at baseline due to chronic LBP. Equipment Owned/DME: cane Subjective: Andrew states that he feels sicker than he's ever been. He is extremely tired and feels weak. Declines getting up to the chair, stating his back won't tolerate it. Objective: General Observation: Resting in bed, no lines. Mental Status: A&Ox3. Vital Signs: Resting: BP 128/80, SaO2 97%, HR 82 Standing: BP 125/75, SaO2 77%, HR 103 Resaturates up to 85% at rest, after 5 minutes ROM: Right Upper Extremity: Shoulder flexion 60*, elbow and wrist motion WFL Left Upper Extremity: Shoulder flexion 60*, elbow and wrist motion WFL Right Lower Extremity: grossly WFL Left Lower Extremity: grossly WFL Strength: Right Upper Extremity: Grossly 3-/5 for shoulder motions. Agronomy Technician is strong and equal. Left Upper Extremity: Grossly 3-/5 for shoulder motions. Agronomy Technician is strong and equal. Right Lower Extremity: Hip flexion 4/5. Quads 3-/5. Ankle DF 4/5. Left Lower Extremity: Hip flexion 4/5. Quads 4/5. Ankle DF 4/5. Bed Mobility/Transfers: Supine- sit: mod A with HOB at 40* sit-supine: supervision sit-stand: CGA with bed elevated stand-sit: CGA Gait: Unable due to increasing light-headedness. Able to tolerate sit-stand x 2, with sidestep x 3 on second attempt at standing. Performs with cane and CGA. Balance: Static Sitting: normal Dynamic Sitting: good Static Standing: fair Dynamic Standing: fair Special Tests: Mobility Limitations Standardized Measure [facility] 6 clicks Basic Mobility Inpatient Short Form: Raw Score: 14 CMS Score: 61% impairment Informed Consent/Education: Patient instructed in purpose of PT consult and plan of care. Assessment: Patient is a 56 year old male referred to physical therapy services with the diagnosis of limited ability to ambulate due to COVID-19 pneumonia. Patient presents with clinical signs and symptoms consistent with diagnosis, with significantly reduced activity tolerance and oxygen desaturation with activity. He requires skilled PT intervention to maximize safety and mobility. Anticipate patient will be safe to transition home with services once medically stable, however will continue to monitor for progress given his marked limitations in mobility today. He currently demonstrates the following impairment level findings: 1. LE weakness 2. decreased activity tolerance 3. oxygen desaturation with activity Impairments are contributing to the following functional limitations: 1. unable to safely ambulate independently 2. unable to transfer independently 3. decreased activity tolerance Patient is assessed as Moderate 74331 complexity based on the following: History: Patient demonstrating diminished functional mobility while hospitalized for COVID-19 pneumonia. Complicated medical history as noted in chart. Examination: functional limitations as noted above Presentation: evolving Decision Making: moderate complexity Goals: Goals X1 week 1. Supine-Sit : supervision 2. Sit-Supine: supervision 3. Sit-Stand : supervision 4. Stand-Sit : supervision 5. Bed-Chair : supervision 6. Chair-Bed : supervision 7. Gait : supervision with LRD x 25' Plan of Care/Treatment Plan: 1-2x/day, 7 days/week x 1 week. Plan of care has been reviewed with the MANAGER BRAND providing the service under Physical Therapy direction. Initiate Physical Therapy intervention for strengthening, bed mobility, transfers, gait, stairs, balance training, use of assistive device. DISCHARGE RECOMMENDATIONS: Home with services : PT TREATMENT CODE/TIME: 53910 (12:00-12:40) Berta Cerda, PT, DPT [facility]
[2022-04-01] MEDS: Atorvastatin 40 MG TAB 80 MG PO (20:29)
[2022-04-01] MEDS: Methocarbamol 750 MG TAB PO (20:30)
[2022-04-01] MEDS: LORazepam 1 MG TAB PO (20:30)
[2022-04-01] MEDS: Metoprolol 50 MG TAB PO (20:31)
[2022-04-01] MEDS: Melatonin 3 MG TAB PO (20:44)
[2022-04-01] MEDS: REMDESIVIR 100 MG in Normal Saline 250 ML 250 MG IVPB (21:54)
[2022-04-01] MEDS: Dexamethasone 4 MG/ML VIAL 6 MG IVP (23:42)
[2022-04-01] MEDS: Normal Saline Flush 10 ML SYR IVP (23:55)
[2022-04-02] MEDS: Acetaminophen 325 MG TAB PO ×2 (00:01→05:40)
[2022-04-02] MEDS: Levothyroxine 100 MCG TAB PO (05:40)
[2022-04-02 08:08] VITALS: BP 144/92; PULSE 54; RESP 16; TEMP 36.1; O2SAT 93
[2022-04-02] MEDS: Ascorbic Acid 500 MG TAB PO (08:11)
[2022-04-02] MEDS: Cholecalciferol (Vitamin D3) 1,000 UNIT TAB 1000 UNITS PO (08:11)
[2022-04-02] MEDS: oxyCODONE-CR 10 MG TABCR 30 MG PO ×2 (08:11→20:11)
[2022-04-02] MEDS: Zinc Sulfate 220 MG TAB PO (08:11)
[2022-04-02] MEDS: Pregabalin 100 MG CAP 200 MG PO ×2 (08:11→20:12)
[2022-04-02 09:35] LABS: Abs Immature Grans 0.11 10^3/uL (0.0-0.06); Absolute Basophil Count 0.02 10^3/uL (0.0-0.2); Absolute Lymphocyte Count 0.57 10^3/uL (1.2-3.4); Absolute Monocyte Count 0.41 10^3/uL (0.1-0.8); Absolute Neutrophil Count 4.44 10^3/uL (1.2-6.7); Basophils % 0.4; HCT 33.6 % (40.0-50.0); HGB 11.3 g/dL (13.5-17.5); Lymphocytes % 10.3; MCHC 33.6 % (32.0-36.0); MCV 92 fL (80-95); MPV 9.2 fL (8.0-11.0); Monocytes % 7.4; Neutrophils % 79.9; Platelet Count 216 10^3/uL (130-400); RBC 3.64 10^6/uL (4.36-5.78); RDW 14.2 % (11.8-14.1); RDW-SD 48.2 fL; WBC 5.55 10^3/uL (4.4-10.8)
[2022-04-02 09:46] LABS: INR 1.5 (0.9-1.1)
[2022-04-02 09:53] LABS: ALT 104 U/L (16-63); AST 93 U/L (15-37); Albumin 2.8 g/dL (3.4-5.0); Alkaline Phosphatase 66 U/L (46-116); BUN 12 mg/dL (7-18); Bilirubin, Direct 0.2 mg/dL (0.0-0.2); Bilirubin, Total 0.6 mg/dL (0.2-1.0); CREATININE 0.7 mg/dL (0.70-1.30); Calcium 8.4 mg/dL (8.5-10.1); Chloride 105 mmol/L (98-107); Glucose 334 mg/dL (74-106); PHOSPHORUS 3.1 mg/dL (2.6-4.7); Potassium 4.1 mmol/L (3.5-5.1); Sodium 138 mmol/L (136-145); Total Protein 6.4 g/dL (6.4-8.2)
[2022-04-02 09:57] LABS: C-Reactive Protein 1.89 mg/dL (0.0-0.3); Magnesium 1.9 mg/dL (1.8-2.4)
[2022-04-02 10:06] LABS: D-Dimer 801 ng/mlFEU (<500)
[2022-04-02 10:11] VITALS: O2SAT 94
[2022-04-02 10:22] LABS: Vitamin D 25 Total 9.2 ng/mL (30-100)
[2022-04-02 10:32] LABS: Ferritin 769 ng/mL (26-388)
--- NOTE | 2022-04-02 12:45 | PTTR_ITS ---
Date of service: 04/02/22 Time of Service: 12:20 PT Notes Visit Reasons: Covid-19 pneumonia Inpatient Physical Therapy Treatment Note [facility] Date: 04/02/2022 PRECAUTIONS: Fall, activity as tolerated, COVID-19 SUBJECTIVE: Andrew is pleasant and agreeable to participating in PT. He reports that he has chronic back pain that interrupts his daily life. He is currently experiencing the back pain. OBJECTIVE: PAIN: Patient c/o general back pain at rest and with activity BED MOBILITY/TRANSFERS Supine-sit: SBA with HOB at 20 degrees utilizing log rolling technique following instruction Sit-supine: I with HOB at flat utilizing log rolling technique following instru ction with reports of less back pain Sit-stand: SBA Stand-sit: SBA GAIT Assistive Device: FWW Weight bearing: Full Assist: SBA Distance: 30' Deviation: Slow pacing, c/o dizziness, SOB VITALS: SaO2: 85-94% on 2L O2 with gait training ASSESSMENT: Patient tolerated session with complaint of increased fatigue, SOB and back pain. He was able to tolerate a progression in gait distance with SBA with use of FWW. PLAN: Continue with global strengthening and general conditioning for improved mobility and activity tolerance. TREATMENT CODE/TIME: 25 minutes; 51679 x2 (12:20)
[2022-04-02 16:38] VITALS: BP 146/81; PULSE 55; RESP 18; TEMP 36.6; O2SAT 92
--- NOTE | 2022-04-02 17:17 | W.PM.PROGNOT ---
Date of Service Date of service: 04/02/22 Time of Service: 17:17 Assessment and Plan Assessment and plan (1) Pneumonia due to COVID-19 virus: Status: Acute Assessment and plan: Does require oxygen. Continue dexamethasone and remdesivir. Add combivent. Continue prn albuterol. Continue therapeutic lovenox. Supplement Vit, D, zinc. Encourage proning. Encourage pulmonary toilet. Wean O2 as tolerated. Continue PT. (2) Generalized weakness: Status: Acute Assessment and plan: Continue PT. (3) Vomiting and diarrhea: Status: Resolved Assessment and plan: Likely a symptom of COVID-19. Resolved. Tolerating adequate PO. (4) Coronary arteriosclerosis: Assessment and plan: No evidence of ACS on this admission. follow up as outpatient. The patient is not on any of the classic CAD drugs, so consider adding at minimum aspirin. (5) Hyperlipidemia: Assessment and plan: Continue atorvastatin (6) Hypertension: Assessment and plan: Continue metoprolol. (7) Obesity: Assessment and plan: BMI of 33.4 kg/m2 Risk factor for COVID complications. Consider a sleep study as outpatient. (8) senior care (current) use of opiate analgesic: Assessment and plan: Due to chronic back pain. Continue home opioids and methocarbamol. Previously referred for back surgery - f/u as outpatient. (9) Diabetes mellitus type 2 in obese: Status: Acute Assessment and plan: With steroid induced hyperglycemia. Per nursing, has been refusing insulin. Contine to encourage compliance. Hold metformin; received IV contrast. Continue SSI. On semiglutide at home. Continue carb consistent diet. (10) Severe recurrent major depression with psychotic features: Assessment and plan: Continue home Fluoxetine and nightly lorazepam. Monitor for worsening sx of depression/psychosis due to covid. (11) Discharge planning issues: Status: Acute Assessment and plan: Full code Continues to require hospitalization Subjective Subjective Interval history since last seen: I'm sick of feeling sick States he is still too weak to walk to the bathroom by himself. Reports lower back pain. Reports shortness of breath on coughing and on exertion. Has been laying mostly on his back - we discussed how he should be either sitting up or proning. He has been working with IS and acapella. He does note he has been having respiratory secretions but he has been swallowing them. Denies CP, dizziness, nausea, diarrhea. Continues to require oxygen (2L to saturate 92% today). Exam Narrative Exam Narrative: General: Obese male who is laying nearly flat in bed, A&Ox3, NAD HEENT: EOMI, MMM, poor dentition Heart: RRR, no m/r/g Lungs: wheezing on expiration B Abdomen: soft, nontender, nondistended Extremities: no edema BLEs Objective Last Vital Signs Temp 36.6 C 04/02/22 16:38 Pulse 55 L 04/02/22 16:38 Resp 18 04/02/22 16:38 BP 146/81 H 04/02/22 16:38 Pulse Ox 92 04/02/22 16:38 Laboratory Results - last 24 hr 04/02/22 04/02/22 04/02/22 08:45 08:45 08:45 WBC 5.55 RBC 3.64 L Hgb 11.3 L Hct 33.6 L MCV 92 MCH 31.0 MCHC 33.6 RDW 14.2 H Plt Count 216 MPV 9.2 Immature Gran % 2.0 Neutrophils % 79.9 Lymphocytes % 10.3 Monocytes % 7.4 Eosinophils % 0.0 Basophils % 0.4 Nucleated RBC % 0.0 Absolute Neutrophils 4.44 Absolute Lymphocytes 0.57 L Absolute Monocytes 0.41 Absolute Eosinophils 0.00 Absolute Basophils 0.02 PT 15.0 H INR 1.5 H D-Dimer 801 H Sodium Potassium Chloride Carbon Dioxide Anion Gap BUN Creatinine Est GFR (CKD-EPI 2020) Glucose Calcium Phosphorus Magnesium 1.9 Ferritin 769 H Total Bilirubin Conjugated Bilirubin AST ALT Alkaline Phosphatase C-Reactive Protein 1.89 H Total Protein Albumin 25-OH Vitamin D Total 04/02/22 04/02/22 08:45 08:45 WBC RBC Hgb Hct MCV MCH MCHC RDW Plt Count MPV Immature Gran % Neutrophils % Lymphocytes % Monocytes % Eosinophils % Basophils % Nucleated RBC % Absolute Neutrophils Absolute Lymphocytes Absolute Monocytes Absolute Eosinophils Absolute Basophils PT INR D-Dimer Sodium 138 Potassium 4.1 Chloride 105 Carbon Dioxide 27.0 Anion Gap 6.0 BUN 12 Creatinine 0.7 Est GFR (CKD-EPI 2020) 109.50 Glucose 334 H Calcium 8.4 L Phosphorus 3.1 Magnesium Ferritin Total Bilirubin 0.6 Conjugated Bilirubin 0.2 AST 93 H ALT 104 H Alkaline Phosphatase 66 C-Reactive Protein Total Protein 6.4 Albumin 2.8 L 25-OH Vitamin D Total 9.2 L
[2022-04-02] MEDS: LORazepam 1 MG TAB PO (20:10)
[2022-04-02] MEDS: Atorvastatin 40 MG TAB 80 MG PO (20:12)
[2022-04-02] MEDS: Methocarbamol 750 MG TAB PO (20:12)
[2022-04-02] MEDS: Metoprolol 50 MG TAB PO (20:12)
[2022-04-02] MEDS: Melatonin 3 MG TAB PO (20:13)
[2022-04-02] MEDS: traZODone 100 MG TAB PO (20:13)
[2022-04-02] MEDS: Normal Saline Flush 10 ML SYR IVP (20:14)
[2022-04-02] MEDS: REMDESIVIR 100 MG in Normal Saline 250 ML 250 MG IVPB (20:14)
[2022-04-02 20:27] VITALS: BP 124/67; PULSE 72; RESP 18; TEMP 36.9; O2SAT 93
[2022-04-02] MEDS: Ipratropium/Albuterol 4 GM 120 PUFF INH IH (21:30)
[2022-04-02 22:56] VITALS: BP 105/69; PULSE 52; RESP 16; TEMP 36.7; O2SAT 95
[2022-04-02] MEDS: Dexamethasone 4 MG/ML VIAL 6 MG IVP (22:58)
[2022-04-03 05:53] VITALS: O2SAT 93
[2022-04-03] MEDS: Levothyroxine 100 MCG TAB PO (05:53)
[2022-04-03 06:55] LABS: Abs Immature Grans 0.13 10^3/uL (0.0-0.06); HCT 34.5 % (40.0-50.0); HGB 11.4 g/dL (13.5-17.5); MCH 30.6 pg (27.0-33.0); MCV 93 fL (80-95); MPV 9.1 fL (8.0-11.0); Platelet Count 229 10^3/uL (130-400); RBC 3.73 10^6/uL (4.36-5.78); RDW 14.2 % (11.8-14.1); WBC 4.58 10^3/uL (4.4-10.8)
[2022-04-03 06:57] LABS: INR 1.4 (0.9-1.1); Prothrombin Time 13.7 sec (9.3-11.0)
[2022-04-03 07:05] LABS: ALT 101 U/L (16-63); AST 73 U/L (15-37); Albumin 2.9 g/dL (3.4-5.0); Alkaline Phosphatase 69 U/L (46-116); BUN 13 mg/dL (7-18); Bilirubin, Direct 0.2 mg/dL (0.0-0.2); Bilirubin, Total 0.5 mg/dL (0.2-1.0); C-Reactive Protein 1.02 mg/dL (0.0-0.3); CREATININE 0.9 mg/dL (0.70-1.30); Calcium 8.4 mg/dL (8.5-10.1); Chloride 104 mmol/L (98-107); Estimated GFR 101.49 (mL/min/1.73m2); Glucose 364 mg/dL (74-106); Magnesium 1.6 mg/dL (1.8-2.4); Potassium 4.1 mmol/L (3.5-5.1); Sodium 138 mmol/L (136-145); Total Protein 6.2 g/dL (6.4-8.2)
[2022-04-03 07:19] LABS: D-Dimer 787 ng/mlFEU (<500)
[2022-04-03 07:28] LABS: Absolute Lymphocyte Count 0.73 10^3/uL (1.2-3.4); Absolute Monocyte Count 0.37 10^3/uL (0.1-0.8); Absolute Neutrophil Count 3.48 10^3/uL (1.2-6.7); Atypical Lymphocytes % 2; Diff Comment Manual Differential; RBC Morphology Normal
[2022-04-03 07:37] LABS: Ferritin 693 ng/mL (26-388)
[2022-04-03 07:45] LABS: Procalcitonin < 0.1 ng/mL
[2022-04-03 08:02] VITALS: BP 105/69; PULSE 52; RESP 16; TEMP 36.2; O2SAT 94
[2022-04-03] MEDS: Ascorbic Acid 500 MG TAB PO (08:05)
[2022-04-03] MEDS: Pregabalin 100 MG CAP 200 MG PO ×2 (08:05→20:50)
[2022-04-03] MEDS: FLUoxetine 20 MG CAP PO (08:05)
[2022-04-03] MEDS: oxyCODONE-CR 10 MG TABCR 30 MG PO ×2 (08:05→20:50)
[2022-04-03] MEDS: Metoprolol 50 MG TAB PO ×2 (08:05→20:50)
[2022-04-03] MEDS: Zinc Sulfate 220 MG TAB PO (08:05)
[2022-04-03] MEDS: Cholecalciferol (Vitamin D3) 1,000 UNIT TAB 2000 UNITS PO (08:06)
[2022-04-03] MEDS: MAGNESIUM SULFATE 2 GM/50 ML BAG IVPB (09:09)
[2022-04-03] MEDS: Enoxaparin 100 MG/ML SYR SC ×2 (09:10→22:45)
[2022-04-03] MEDS: Magnesium Chloride 64 MG TABCR PO (09:10)
[2022-04-03] MEDS: Normal Saline Flush 10 ML SYR IVP ×2 (09:10→22:56)
[2022-04-03] MEDS: Ipratropium/Albuterol 4 GM 120 PUFF INH IH ×4 (09:56→20:50)
[2022-04-03] MEDS: Insulin Aspart 300 UNITS/3 ML PEN SC ×3 (12:06→22:45)
[2022-04-03 16:54] VITALS: BP 137/86; PULSE 60; RESP 16; TEMP 36.5; O2SAT 92
--- NOTE | 2022-04-03 18:52 | W.PM.PROGNOT ---
Date of Service Date of service: 04/03/22 Time of Service: 18:52 Assessment and Plan Assessment and plan (1) Pneumonia due to COVID-19 virus: Status: Acute Assessment and plan: Continues to require oxygen. Continue dexamethasone and remdesivir. Continue combivent. Continue prn albuterol. Continue therapeutic lovenox. Supplement Vit, D, zinc. Encourage proning. Encourage pulmonary toilet. Wean O2 as tolerated. Continue PT. (2) Generalized weakness: Status: Acute Assessment and plan: Continue PT. (3) Vomiting and diarrhea: Status: Resolved Assessment and plan: Likely a symptom of COVID-19. Resolved. Tolerating adequate PO. (4) Coronary arteriosclerosis: Assessment and plan: No evidence of ACS on this admission. follow up as outpatient. The patient is not on any of the classic CAD drugs, so consider adding at minimum aspirin. (5) Hyperlipidemia: Assessment and plan: Continue atorvastatin (6) Hypertension: Assessment and plan: Continue metoprolol. (7) Obesity: Assessment and plan: BMI of 33.4 kg/m2 Risk factor for COVID complications. Consider a sleep study as outpatient. 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 Continue home opioids and methocarbamol. Previously referred for back surgery - f/u as outpatient. (9) Diabetes mellitus type 2 in obese: Status: Acute Assessment and plan: With steroid induced hyperglycemia. Per nursing, has been refusing insulin. Contine to encourage compliance. Hold metformin; received IV contrast. Continue SSI. On semiglutide at home. Continue carb consistent diet. (10) Severe recurrent major depression with psychotic features: Assessment and plan: Continue home Fluoxetine and nightly lorazepam. Monitor for worsening sx of depression/psychosis due to covid. (11) Discharge planning issues: Status: Acute Assessment and plan: Full code Continues to require hospitalization Subjective Subjective Interval history since last seen: Feels better today. Desaturated to 82% on RA on ambulation; requiring 1L of O2 at rest to saturate 93%. Denies dizziness, endorses chest pain from coughing, endorses shortness of breath with coughing as well. Denies n/v. States cough is now productive of green sputum. Refuses insulin. Exam Narrative Exam Narrative: General: Obese male who is laying nearly flat in bed, A&Ox3, NAD HEENT: EOMI, MMM, poor dentition Heart: RRR, no m/r/g Lungs: Crackles to B mid-lung bradshaw Abdomen: soft, nontender, nondistended Extremities: no edema BLEs Objective Last Vital Signs Temp 36.5 C 04/03/22 16:54 Pulse 60 04/03/22 16:54 Resp 16 04/03/22 16:54 BP 137/86 04/03/22 16:54 Pulse Ox 92 04/03/22 16:54 Laboratory Results - last 24 hr 04/03/22 04/03/22 04/03/22 06:25 06:25 06:25 WBC 4.58 RBC 3.73 L Hgb 11.4 L Hct 34.5 L MCV 93 MCH 30.6 MCHC 33.0 RDW 14.2 H Plt Count 229 MPV 9.1 Immature Gran % See Differential Neutrophils % 76.0 Lymphocytes % 14.0 Atypical Lymphs % 2 Monocytes % 8.0 Eosinophils % 0.0 Basophils % 0.0 Nucleated RBC % 0.0 Absolute Neutrophils 3.48 Absolute Lymphocytes 0.73 L Absolute Monocytes 0.37 Absolute Eosinophils 0.00 Absolute Basophils 0.00 RBC Morphology Normal PT 13.7 H INR 1.4 H D-Dimer 787 H Sodium 138 Potassium 4.1 Chloride 104 Carbon Dioxide 27.0 Anion Gap 7.0 BUN 13 Creatinine 0.9 Est GFR (CKD-EPI 2020) 101.49 Glucose 364 H Calcium 8.4 L Magnesium 1.6 L Ferritin 693 H Total Bilirubin 0.5 Conjugated Bilirubin 0.2 AST 73 H ALT 101 H Alkaline Phosphatase 69 C-Reactive Protein 1.02 H Total Protein 6.2 L Albumin 2.9 L Procalcitonin 04/03/22 06:35 WBC RBC Hgb Hct MCV MCH MCHC RDW Plt Count MPV Immature Gran % Neutrophils % Lymphocytes % Atypical Lymphs % Monocytes % Eosinophils % Basophils % Nucleated RBC % Absolute Neutrophils Absolute Lymphocytes Absolute Monocytes Absolute Eosinophils Absolute Basophils RBC Morphology PT INR D-Dimer Sodium Potassium Chloride Carbon Dioxide Anion Gap BUN Creatinine Est GFR (CKD-EPI 2020) Glucose Calcium Magnesium Ferritin Total Bilirubin Conjugated Bilirubin AST ALT Alkaline Phosphatase C-Reactive Protein Total Protein Albumin Procalcitonin < 0.1
[2022-04-03 20:47] VITALS: BP 127/80; PULSE 62; RESP 16; TEMP 37.4; O2SAT 90
[2022-04-03] MEDS: REMDESIVIR 100 MG in Normal Saline 250 ML 250 MG IVPB (20:49)
[2022-04-03 20:50] VITALS: O2SAT 90
[2022-04-03] MEDS: Atorvastatin 40 MG TAB 80 MG PO (20:50)
[2022-04-03] MEDS: Insulin Glargine 300 UNITS/3 ML PEN 35 UNITS SC (22:46)
[2022-04-03] MEDS: Melatonin 3 MG TAB PO (22:47)
[2022-04-03] MEDS: LORazepam 1 MG TAB PO (22:47)
[2022-04-03] MEDS: traZODone 100 MG TAB PO (22:47)
[2022-04-03] MEDS: Methocarbamol 750 MG TAB PO (22:47)
[2022-04-03] MEDS: Dexamethasone 4 MG/ML VIAL 6 MG IVP (22:54)
[2022-04-03 23:04] VITALS: BP 130/83; PULSE 59; RESP 15; TEMP 37; O2SAT 93
[2022-04-04 04:11] VITALS: BP 125/78; PULSE 51; RESP 14; TEMP 36.5; O2SAT 92
[2022-04-04] MEDS: Levothyroxine 100 MCG TAB PO (06:11)
[2022-04-04 06:21] LABS: Abs Immature Grans 0.19 10^3/uL (0.0-0.06); HCT 33.6 % (40.0-50.0); HGB 11.4 g/dL (13.5-17.5); MCH 31.1 pg (27.0-33.0); MCHC 33.9 % (32.0-36.0); MCV 92 fL (80-95); MPV 9.2 fL (8.0-11.0); Platelet Count 226 10^3/uL (130-400); RBC 3.67 10^6/uL (4.36-5.78); RDW-SD 47.3 fL; WBC 5.05 10^3/uL (4.4-10.8)
[2022-04-04 06:32] LABS: INR 1.4 (0.9-1.1); Prothrombin Time 13.5 sec (9.3-11.0)
[2022-04-04 06:35] LABS: Anion Gap 7.1 mmol/L (3-11); BUN 12 mg/dL (7-18); C-Reactive Protein 0.55 mg/dL (0.0-0.3); CO2 26.9 mmol/L (21.0-32.0); CREATININE 0.7 mg/dL (0.70-1.30); Calcium 8.3 mg/dL (8.5-10.1); Chloride 104 mmol/L (98-107); Glucose 335 mg/dL (74-106); Magnesium 1.7 mg/dL (1.8-2.4); Potassium 4.5 mmol/L (3.5-5.1); Sodium 138 mmol/L (136-145)
[2022-04-04 06:37] LABS: Absolute Lymphocyte Count 1.06 10^3/uL (1.2-3.4); Absolute Monocyte Count 0.25 10^3/uL (0.1-0.8); Absolute Neutrophil Count 3.64 10^3/uL (1.2-6.7); Atypical Lymphocytes % 5; Metamyelocytes % 2
[2022-04-04 06:39] LABS: Diff Comment Manual Differential; RBC Morphology Normal
[2022-04-04 06:56] LABS: D-Dimer 547 ng/mlFEU (<500)
[2022-04-04 08:23] VITALS: BP 150/90; PULSE 58; RESP 18; TEMP 36.6; O2SAT 93
[2022-04-04] MEDS: FLUoxetine 20 MG CAP PO (08:28)
[2022-04-04] MEDS: guaiFENesin 600 MG TABCR PO (08:28)
[2022-04-04] MEDS: oxyCODONE-CR 10 MG TABCR 30 MG PO (08:28)
[2022-04-04] MEDS: Ascorbic Acid 500 MG TAB PO (08:28)
[2022-04-04] MEDS: Magnesium Chloride 64 MG TABCR PO (08:29)
[2022-04-04] MEDS: Zinc Sulfate 220 MG TAB PO (08:29)
[2022-04-04] MEDS: Cholecalciferol (Vitamin D3) 1,000 UNIT TAB 2000 UNITS PO (08:29)
[2022-04-04] MEDS: Pregabalin 100 MG CAP 200 MG PO (08:29)
[2022-04-04] MEDS: Insulin Aspart 300 UNITS/3 ML PEN SC (08:30)
[2022-04-04] MEDS: MAGNESIUM SULFATE 2 GM/50 ML BAG IVPB (08:31)
[2022-04-04] MEDS: Ipratropium/Albuterol 4 GM 120 PUFF INH IH ×2 (09:04→11:47)
[2022-04-04 09:29] VITALS: PULSE 103; PULSE 82; PULSE 90; RESP 16; RESP 32; O2SAT 89; O2SAT 92
[2022-04-04 09:43] VITALS: O2SAT 90
--- NOTE | 2022-04-04 10:49 | DSE_ITS ---
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: (9) Diabetes mellitus type 2 in obese: Status: Acute (10) Severe recurrent major depression with psychotic features: (11) Steroid-induced hyperglycemia: Status: Acute (12) Ambulatory dysfunction: Status: Acute (13) Chronic pain: Status: Chronic (14) Hypomagnesemia: Status: Acute (15) Vitamin D deficiency: Status: Acute Discharge Plan Disposition Patient Disposition: Home W/Home Health Services Condition: Improving Discharge Details Reason For Visit: Covid-19 pneumonia Admit Date/Time: 03/31/22 18:49 Admit Provider: Houston Liao Attending Provider: Houston Liao Primary Care Provider: Christine Arora Hospital Course Hospital Course: Mr Peoples is a 56 year old male with PMHx of IDDM2 with neuropathy, CAD, HTN, hyperlipidemia, obesity with BMI of 33.4 kg/m2, who was a patient on [facility] hospitalist service from 03/31/22 until 04/04/22 for pneumonia due to COVID-19 as well as weakness causing inability to walk, also due to above. The patient did not initially require oxygen, but did start to on his first night in the hospital. His treatment included remdesivir, dexamethasone, scheduled and prn bronchodilators, pulmonary toilet, vitamin C and D supplementation. While he had evidence of steroid induced hyperglycemia, he firmly refused to take insulin here. He progressed with physical therapy. On the morning of 04/04/22, his ambulatory pulse ox on room air is 89%. He is saturatin 90-92% at rest on room air. He feels ready to go home and is being discharged with referrals to home health nursing to help monitor his O2 sats/cardiopulmonary status, referral to home health PT/OT as well as HUMAN DEVELOPMENT PROFESSOR. He is being discharged home with a pulse oximeter. He is being discharged home with a front-wheeled walker. He is being encouraged to prone at home as well as to continue working with IS and acapella. He is being discharged home with a steroid taper. Care for patient as well as completion of his discharge summary on day of discharge took 45 minutes. Home Meds and New Rx's Prescriptions: New ascorbic acid (vitamin C) [Vitamin C] 500 mg Tablet 500 mg PO BID Qty: 20 0RF cholecalciferol (vitamin D3) 25 mcg (1,000 unit) Tablet 2,000 units PO DAILY Qty: 60 0RF guaifenesin [Mucus Relief ER] 600 mg Tablet Extended Release 12hr 600 mg PO BID PRN PRN (Reason: cough) Qty: 20 0RF Combivent Respimat 20-100 mcg/actuation Mist 1 puff inhalation QID PRN PRN (Reason: shortness of breath or wheezing) Qty: 4 0RF melatonin 3 mg Tablet 3 mg PO HS Qty: 30 0RF Mag 64 64 mg Tablet,Delayed Release (Dr/Ec) 64 mg PO DAILY Qty: 30 0RF zinc sulfate [Zinc-220] 50 mg zinc (220 mg) Capsule 220 mg PO DAILY Qty: 10 0RF famotidine [Pepcid] 20 mg tablet 20 mg PO QHS Qty: 10 0RF prednisone 10 mg tablet See Rx Instructions .ROUTE .COMPLEX Qty: 12 0RF Rx Instructions: Prednisone 30 mg PO daily x 2 days, then 20 mg PO daily x 2 days, then 10 mg PO daily x 2 days, then stop Continued Ozempic 0.25 mg or 0.5 mg(2 mg/1.5 mL) pen injector 0.25 mg SC QWEEK atorvastatin [Lipitor] 80 MG tablet 80 mg PO DAILY insulin glargine [Lantus U-100 Insulin] 100 UNIT/ML solution 31 units PO HS levothyroxine 100 MCG tablet 100 mcg PO DAILY methocarbamol 750 MG tablet 750 mg PO HS trazodone 100 MG tablet 100 mg PO DAILY metformin [Glucophage] 1,000 MG tablet 1,000 mg PO BID naproxen [EC-Naprosyn] 500 MG tablet,delayed release (DR/EC) 500 mg PO DAILY oxycodone 30 MG tablet 30 mg PO BID pregabalin [Lyrica] 200 MG capsule 200 mg PO BID metoprolol tartrate 25 mg tablet 50 mg PO BID fluoxetine 40 mg capsule 20 mg PO DAILY Changed lorazepam 1 MG tablet 1 mg PO HS Qty: 0 0RF Label Comments: is prescribed to have 1mg po tid. States he puts them all together and was told this was ok by [facility]. 12/05/17 CG Discharge Instructions Instructions: Prednisone (By mouth), Ipratropium/Albuterol (By breathing), How to Use an Incentive Spirometer (DC), COVID-19 (Coronavirus Disease 2019) (DC) Additional Instructions: Finish your prednisone taper as prescribed. Return to the hospital with any fever, bleeding, chest pain, or worsening shortness of breath. Remember to use your incentive spirometer 10 x/hr throughout the hour while you are awake and your acapella once an hour while you are awake. You should self isolate until 04/10/22. Monitor your pulse oximetry and return to the hospital if numbers his 88% or low er and stay there. Remember to turn from side to side and sit up. Do not lay on your back. Care Plan Goals: Home with new home health nursing, PT, OT, HUMAN DEVELOPMENT PROFESSOR. Stand Alone Forms: Nursing Discharge Form Referrals: Christine Arora [Primary Care Provider] - (Call Monday to make an Appointment in the next 1-2 weeks for Hospital discharge ) Activity:: Activity as Tolerated Equipment/Supplies:: FWW, pulse oximeter Diet:: consistent carb heart healthy Discharge Orders Discharge Orders: Discharge Order (Routine); Ordered 04/04/22 Ordered By: Angela Kim DS: Summary Time Spent with Patient providing and/or coordinating discharge services: Greater than 30 minutes Status at Discharge Functional status at discharge: uses cane/walker Overall status at discharge: patient is progressing back to baseline Mental Status: mental status grossly normal Speech and Movement: speech and movement normal Mood: congruent mood Affect: normal affect Exam Narrative Exam Narrative: General: Obese male who is laying nearly flat in bed, A&Ox3, NAD HEENT: EOMI, MMM, poor dentition Heart: RRR, no m/r/g Lungs: Diminished breath sounds B Abdomen: soft, nontender, nondistended Extremities: no edema BLEs Psych Mental Status: mental status grossly normal Speech and Movement: speech and movement normal Mood: congruent mood Affect: normal affect DS: Data Vitals/I&O Vitals and I&O: Vital Signs Temperature 36.6 C 04/04/22 08:23 Temperature Source Tympanic 04/04/22 08:23 Pulse 58 L 04/04/22 08:23 Pulse Rhythm Regular 04/04/22 04:10 Pulse 100 H 03/31/22 18:20 Respiratory Rate 18 04/04/22 08:23 Respiratory Effort 04/04/22 04:10 Respiratory Depth Normal 04/04/22 04:10 Respiratory Pattern Normal 04/04/22 04:10 Blood Pressure 150/90 H 04/04/22 08:23 Blood Pressure Mean 79 03/31/22 17:56 Blood Pressure Position Sitting 03/31/22 15:24 Pulse Oximetry 90 L 04/04/22 09:43 Oxygen Delivery Method Room Air 04/04/22 09:43 Oxygen Flow Rate 0 04/04/22 09:43 Pain Level 8 04/04/22 08:23 Comment 03/31/22 22:27 Intake & Output 04/03/22 04/03/22 04/04/22 11:59 23:59 11:59 Intake Total 50 / 60 10 / 60 250 / 250 Balance 50 / 60 10 / 60 250 / 250 Intake: IV 50 / 60 10 / 60 250 / 250 Other: Urine Color Yellow Yellow Urine Appearance Clear Clear Clear Urine Odor Normal Normal Comment unmeasured urine amount. Patient voided in the toilet. patient reports voiding independently Voiding Methods Toilet Toilet Toilet Data Completed and Pending Completed studies during hospitalization [Text1]: CXR 03/31/22: 1. No evidence of pulmonary embolism, thoracic aortic dissection or aneurysm. 2. Scattered ground-glass opacities in the lungs consistent with pneumonia.? CTA chest 03/31/22: No acute? findings. Labs on day of discharge: Labs from last 24 hours 04/04/22 04/04/22 04/04/22 05:21 05:21 05:21 WBC 5.05 RBC 3.67 L Hgb 11.4 L Hct 33.6 L MCV 92 MCH 31.1 MCHC 33.9 RDW 14.0 Plt Count 226 MPV 9.2 Immature Gran % 0.0 Neutrophils % 72.0 Lymphocytes % 16.0 Atypical Lymphs % 5 Monocytes % 5.0 Eosinophils % 0.0 Basophils % 0.0 Metamyelocytes % 2 Nucleated RBC % 0.0 Absolute Neutrophils 3.64 Absolute Lymphocytes 1.06 L Absolute Monocytes 0.25 Absolute Eosinophils 0.00 Absolute Basophils 0.00 RBC Morphology Normal PT 13.5 H INR 1.4 H D-Dimer 547 H Sodium 138 Potassium 4.5 Chloride 104 Carbon Dioxide 26.9 Anion Gap 7.1 BUN 12 Creatinine 0.7 Est GFR (CKD-EPI 2020) 109.50 Glucose 335 H Calcium 8.3 L Magnesium 1.7 L C-Reactive Protein 0.55 H PFSH All Active Problems (Updated 04/04/22 @ 11:49 by Angela Kim MD) Vitamin D deficiency (Acute) Hypomagnesemia (Acute) Chronic pain (Chronic) Ambulatory dysfunction (Acute) Steroid-induced hyperglycemia (Acute) Discharge planning issues (Acute) Diabetes mellitus type 2 in obese (Acute) Pneumonia due to COVID-19 virus (Acute) COVID-19 (Acute) Multifocal pneumonia (Acute) Generalized weakness (Acute) Right carpal tunnel syndrome (Acute) Cubital tunnel syndrome on right (Acute) Stroke (Chronic) Ulnar neuropathy of right upper extremity (Acute) Diabetic neuropathy (Acute) Medical History Acute ST segment elevation myocardial infarction Coronary arteriosclerosis Cubital tunnel syndrome on left Diabetes Dyspnea Full thickness rotator cuff tear Headache Hx of herpes zoster Hyperlipidemia Hypertension Hypothyroidism Idiopathic osteoporosis Inflammatory dermatosis Injury of right lower leg Insomnia Knee pain 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 Obesity Pain, joint, shoulder, left Panic disorder Second degree atrioventricular block Severe recurrent major depression with psychotic features Suicidal thoughts Vitamin D deficiency Surgical History H/O arthroplasty History of appendectomy History of carpal tunnel surgery L 2008 History of loop recorder Apr 2019 Hx of cardiac cath S/P CABG x 2 S/P rotator cuff repair L 2008 Family History Mother Torticollis Father Diabetes Multiple sclerosis Cardiomyopathy Social History Smoking/Tobacco Use Status: Never Smoking risk assessment performed?: Yes Alcohol Intake: former Details: QUIT 2003 Drug use: Never Substance use type: does not use Housing: house current occupation: Disabled What is your relationship status?: never Panel score (0-1 are the most socially isolated patients): 0 Seatbelt use: always Do you feel safe in your relationship?: Yes
[2022-04-04 10:52] VITALS: BP 108/70; PULSE 66; RESP 18; O2SAT 92
[2022-04-04] MEDS: Metoprolol 50 MG TAB PO (10:54)
[2022-04-04] MEDS: Enoxaparin 100 MG/ML SYR SC (10:54)
[2022-04-04 11:46] VITALS: O2SAT 94
--- NOTE | 2022-04-04 12:06 | PDOC.HHF2F ---
Home Health Referral Home Health Orders Clinical synopsis of why skilled professionals are needed: Mr Peoples is a 56 year old male with PMHx of IDDM2 with neuropathy, CAD, HTN, hyperlipidemia, obesity with BMI of 33.4 kg/m2, who was a patient on [facility] hospitalist service from 03/31/22 until 04/04/22 for pneumonia due to COVID-19 as well as weakness causing inability to walk, also due to above. The patient did not initially require oxygen, but did start to on his first night in the hospital. His treatment included remdesivir, dexamethasone, scheduled and prn bronchodilators, pulmonary toilet, vitamin C and D supplementation. While he had evidence of steroid induced hyperglycemia, he firmly refused to take insulin here. He progressed with physical therapy. On the morning of 04/04/22, his ambulatory pulse ox on room air is 89%. He is saturatin 90-92% at rest on room air. 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 He is being discharged home with a pulse oximeter. He is being discharged home with a front-wheeled walker. He is being encouraged to prone at home as well as to continue working with IS and acapella. He is being discharged home with a steroid taper. Medical diagnosis necessitation home health referral: COVID-19 w/ hypoxia and generalized weakness Registered Nurse: Check all that apply Instruct on new or changed medication(s)/assess compliance: Ordered Assess for exacerbation of medical condition, instruct patient/caregivers on signs and symptoms to report for early detection: Ordered Other: Nurse to pharmacy picking tech medications at [facility] in [place] Physical Therapist: Check all that apply Increase strength & endurance for safe mobility at home: Ordered To design/establish home maintenance program: Ordered Fall reduction therapy program for patient with history of frequent falls: Ordered Home safety evaluation and teaching/gait training including stair management (if applicable): Ordered Occupational Therapist: Evaluate and treat for patient unable to perform ADL/IADL/self-care: Ordered Upper extremity strengthening, range and motion: Ordered Bracelet Maker Novelty: Assist with community resources: Ordered Home Bound Status Requires the aid of supportive device (check all that apply): Walker Patient has a condition such that leaving home is medically contraindicated (Describe): COVID-19 Describe why leaving home would require a considerable and taxing effort: Requires frequent rest periods Encounter Date and Reason: I certify that a FTF encounter for this patient was performed on April 04, 2022 and that such encounter was related to the primary reason the patient requires home health services. The encounter was conducted in the following manner: By me as the certifying physician, MALLET AND DIE CUTTER, PA or By an inpatient physician, MALLET AND DIE CUTTER or PA during an inpatient stay who communicated findings to me, Certification And Authentication I certify that I composed the above information based on my clinical judgment relating to this patient's medical condition and, if applicable, clinical findings communicated to me by the NPP or inpatient physician who performed the FTF encounter. Name of Provider that will be monitoring home health services: Christine Arora
[2022-04-04 12:25] LABS: Lab Add On Test DONE
[2022-04-04 12:44] LABS: Hemoglobin A1C 8.7 % (<5.7)
--- NOTE | 2022-04-05 18:20 | PT.INDS ---
Date of service: 04/05/22 PT Notes Visit Reasons: Covid-19 Pneumonia Physical Therapy Inpatient Discharge Summary Date: 04/05/22 Dates of Service: 04/01/2022 through 04/02/2022 This is a clinical summary of care provided for the duration of dates listed above. No charge was made in the completion of this documentation. Referring Doctor:? Dr. Kim PT Orders: PT CONSULT: safety consult Precautions: COVID Patient Profile/Admitting Diagnosis:?? Patient admitted for medical management of COVID-19 pneumonia. PT consult requested to assess mobility. PMHX: All Active Problems?(Updated 03/31/22 @ 21:00 by Houston Liao MD) Diabetes mellitus type 2 in obese (Acute) Pneumonia due to COVID-19 virus (Acute) COVID-19 (Acute) Multifocal pneumonia (Acute) Generalized weakness (Acute) Vomiting and diarrhea (Acute) Right carpal tunnel syndrome (Acute) Cubital tunnel syndrome on right (Acute) Stroke (Chronic) Ulnar neuropathy of right upper extremity (Acute) Diabetic neuropathy (Acute) Medical History? Acute ST segment elevation myocardial infarction Coronary arteriosclerosis Cubital tunnel syndrome on left Diabetes Dyspnea Full thickness rotator cuff tear Headache Hx of herpes zoster Hyperlipidemia Hypertension Hypothyroidism Idiopathic osteoporosis Inflammatory dermatosis Injury of right lower leg Insomnia Knee pain long-term (current) use of opiate analgesic Obesity Pain, joint, shoulder, left Panic disorder Second degree atrioventricular block Severe recurrent major depression with psychotic features Suicidal thoughts Vitamin D deficiency Social History/Home Situation: Lives alone in a private apartment, no steps to enter. Assistance from neighbors. Ambulates with cane at baseline. Reports inability to sit >30 minutes at baseline due to chronic LBP. Equipment Owned/DME: cane Subjective:? NT. See most recent FREIGHT CAR CLEANER notes. Objective:? General Observation: NT. See most recent FREIGHT CAR CLEANER notes. Mental Status: NT. See most recent FREIGHT CAR CLEANER notes. Vital Signs: NT. See most recent FREIGHT CAR CLEANER notes. ROM: Right Upper Extremity: Shoulder flexion 60*, elbow and wrist motion WFL Left Upper Extremity: Shoulder flexion 60*, elbow and wrist motion WFL Right Lower Extremity: grossly WFL Left Lower Extremity: grossly WFL Strength: Right Upper Extremity: Grossly 3-/5 for shoulder motions. Chemistry Technical Officer is strong and equal. Left Upper Extremity: Grossly 3-/5 for shoulder motions. Chemistry Technical Officer is strong and equal. Right Lower Extremity: Hip flexion 4/5. Quads 3-/5. Ankle DF 4/5. Left Lower Extremity: Hip flexion 4/5. Quads 4/5. Ankle DF 4/5. BED MOBILITY/TRANSFERS? Supine-sit: SBA with HOB at 20 degrees utilizing log rolling technique following instruction Sit-supine: I with HOB at flat utilizing log rolling technique following instruction with reports of less back pain Sit-stand: SBA ? Stand-sit: SBA ? GAIT? Assistive Device: FWW ? Weight bearing: Full Assist: SBA? Distance: 30' Deviation: Slow pacing, c/o dizziness, SOB Balance:? Static Sitting: normal Dynamic Sitting: good Static Standing: fair Dynamic Standing: fair Assessment:?? Patient is a 56 year old male referred to physical therapy services with the diagnosis of limited ability to ambulate due to COVID-19 pneumonia.? Patient presents with clinical signs and symptoms consistent with diagnosis, with significantly reduced activity tolerance and oxygen desaturation with activity. He required skilled PT intervention to maximize safety and mobility. He currently demonstrates the following impairment level findings: 1. LE weakness 2. decreased activity tolerance 3. oxygen desaturation with activity Impairments are contributing to the following functional limitations: 1. unable to safely ambulate independently 2. unable to transfer independently 3. decreased activity tolerance Goals: Goals X1 week 1. Supine-Sit : supervision NOT MET 2. Sit-Supine: supervision MET 3. Sit-Stand : supervision NOT MET 4. Stand-Sit : supervision NOT MET 5. Bed-Chair : supervision NOT MET 6. Chair-Bed : supervision NOT MET 7. Gait : supervision with LRD x 25' NOT MET DISCHARGE RECOMMENDATIONS: Home with services : PT TREATMENT CODE/TIME:? NC Thank you for the opportunity to participate in the care of this patient. Josephine Bullock PT, DPT, CLT [facility] [place], [place]
== END 2022-04-04 12:28 | disposition home health service (06) | DRG 177 ==
LOC: ER 19:14 → MS 20:36
PROVIDERS: Internal Medicine; Admitting Provider Family Medicine; Emergency Provider Physician Assistant; PCP Physician Assistant Medical; Visit Provider Family Medicine
DX: U07.1 COVID-19 (principal); J12.82 Pneumonia due to coronavirus disease 2019; J18.9 Pneumonia, unspecified organism; F33.3 Major depressive disorder, recurrent, severe with psychotic symptoms; R45.851 Suicidal ideations; R53.1 Weakness; R19.7 Diarrhea, unspecified; R11.10 Vomiting, unspecified; I25.10 Atherosclerotic heart disease of native coronary artery without angina pectoris; E78.5 Hyperlipidemia, unspecified; I10 Essential (primary) hypertension; E66.9 Obesity, unspecified; Z68.33 Body mass index [BMI] 33.0-33.9, adult; Z79.891 Long term (current) use of opiate analgesic; E83.42 Hypomagnesemia; E11.65 Type 2 diabetes mellitus with hyperglycemia; T38.0X5A Adverse effect of glucocorticoids and synthetic analogues, initial encounter; Z95.1 Presence of aortocoronary bypass graft; Z86.73 Personal history of transient ischemic attack (TIA), and cerebral infarction without residual deficits; E11.40 Type 2 diabetes mellitus with diabetic neuropathy, unspecified; M81.8 Other osteoporosis without current pathological fracture; F41.0 Panic disorder [episodic paroxysmal anxiety]; I44.1 Atrioventricular block, second degree; Z79.4 Long term (current) use of insulin; Z79.84 Long term (current) use of oral hypoglycemic drugs; M54.9 Dorsalgia, unspecified; G89.29 Other chronic pain; I25.2 Old myocardial infarction
CPT/HCPCS: 36415; 71275; 80048; 80053; 80076; 82306; 83690; 84145; 87637; 94618; 94640; 96374; 96375; 97162; 97530; 99223; 99285; 71045; 82728; 83036; 83735; 84100; 84443; 85025; 85049; 85379; 85610; 86140; 94667; 94668; 99232; 99239; J0248; J1100; J1650; J1885; J2405; J3490; J7613; J7620